=== PATIENT | female | born 1995 ===

== ENCOUNTER 2016-07-27 05:50 | Emergency (ER) | payer BC ==
--- NOTE | 2016-07-27 07:10 | ED ---
GI/ HPI - HPI Summary HPI Summary: Pt here w/ UTI sx which she thought were starting before bed last night but she noticed moreso in the middle of the night. Dysuria, urinary frequency/urge w/ minimal void volume. Noticed blood which she thought was her period last night w / wiping but this morning, has gross hematuria. Denies taking AZO or consuming beet products. H/o UTI 5 months ago - first one - feels the same. Has had intermittent subjective fever. Denies N/V, ab pain, flank pain. Has had mild nausea, intermittent. No known h/o stones. - History of Current Complaint Chief Complaint: EDGeneral Time Seen by Provider: 07/27/16 06:42 Stated Complaint: BLOODY URINE/PAINFUL URINATION Hx Obtained From: Patient Pain Intensity: 6 - Allergy/Home Medications Allergies/Adverse Reactions: Allergies Allergy/AdvReac Type Severity Reaction Status Date / Time No Known Allergies Allergy Verified 08/24/15 18:24 PMH/Surg Hx/FS Hx/Imm Hx Previously Healthy: Yes Endocrine/Hematology History: Denies: Hx Anticoagulant Therapy, Hx Blood Disorders, Hx Unexplained Bleeding GI History: Denies: Hx Gall Bladder Disease History: Reports: Hx Kidney Infection - 1 x Denies: Hx Kidney Stones, Hx Renal Disease Infectious Disease History: No Infectious Disease History: Denies: History Other Infectious Disease, Traveled Outside the [place] in Last 30 Days - Family History Known Family History: Positive: Cardiac Disease, Other - cancer - breast, prostate - Social History Occupation: Student - [employer] Lives: With Family - roommates Alcohol Use: Rare Hx Substance Use: No Substance Use Type: Reports: None Hx Tobacco Use: No Smoking Status (MU): Never Smoked Tobacco Review of Systems Constitutional: Other - see HPI Negative: Chills Negative: Chest Pain Negative: Shortness Of Breath Gastrointestinal: Other - see HPI Positive: see HPI Musculoskeletal: Negative Skin: Negative Neurological: Negative Psychological: Normal All Other Systems Reviewed And Are Negative: Yes Physical Exam Triage Information Reviewed: Yes Vital Signs On Initial Exam: Initial Vitals Temp Pulse Resp BP Pulse Ox 98.2 F 61 18 102/49 99 07/27/16 05:55 07/27/16 05:55 07/27/16 05:55 07/27/16 05:55 07/27/16 05:55 Vital Signs Reviewed: Yes Appearance: Positive: Well-Appearing, No Pain Distress, Well-Nourished Skin: Positive: Warm, Dry Head/Face: Positive: Normal Head/Face Inspection Eyes: Positive: Normal, EOMI, Conjunctiva Clear - anicteric sclera ENT: Positive: Pharynx normal - mucosa moist Respiratory/Lung Sounds: Positive: Clear to Auscultation, Breath Sounds Present Cardiovascular: Positive: Normal, RRR, S1, S2 Abdomen Description: Positive: Nontender, No Organomegaly, Soft, Other: - urge to urinate w/ midline pelvic palpation. Negative: CVA Tenderness (R), CVA Tenderness (L) Musculoskeletal: Positive: Normal, Strength/ROM Intact Neurological: Positive: Normal, Sensory/Motor Intact, Alert, Oriented to Person Place, Time, CN Intact II-III Psychiatric: Positive: Normal Diagnostics - Vital Signs Vital Signs Temp Pulse Resp BP Pulse Ox 07/27/16 05:59 98.2 F 63 18 106/67 100 07/27/16 05:55 98.2 F 61 18 102/49 99 - Laboratory Lab Statement: Any lab studies that have been ordered have been reviewed, and results considered in the medical decision making process. GIGU Course/Dx - Diagnoses Provider Diagnoses: UTI (urinary tract infection) Discharge - Discharge Plan Condition: Stable Disposition: HOME Prescriptions: Ciprofloxacin TAB* [Cipro 500 MG TAB*] 500 mg PO DAILY #6 tab Patient Education Materials: Urinary Tract Infection in Women (ED) Referrals: [facility] CIPRIANO Cote [Primary Care Provider] - Additional Instructions: Increase water intake and void with urge. Follow-up with PCP
[2016-07-27 07:13] LABS: Manual Entry Verification AS; UR Preg Internal Control QC Line Present; UR Preg Kit Lot# 6030156
[2016-07-27 07:30] LABS: Urine Bacteria 1+ (Absent); Urine Bilirubin Negative (Negative); Urine Glucose Negative (Negative); Urine Nitrite Positive (Negative)
[2016-07-27] MEDS ORDERED: Phenazopyridine TAB* 100 MG PO ONE (07:41)
--- NOTE | 2016-07-29 07:24 | PN ---
Progress Note - Progress Note Note: Patient urine grew E coli 75-100,000. placed on cipro at d/c will wait for final culture.
== END 2016-07-27 08:08 | disposition home or self-care (01) ==
LOC: ED 05:50
DX: N39.0 Urinary tract infection, site not specified (principal); R30.0 Dysuria
CPT/HCPCS: 81003; 81015; 81025; 87077; 87086; 87186; 99282; A9270-GY